=== PATIENT | female | born 1985 | race Caucasian/White ===

== ENCOUNTER 2022-12-05 11:15 | Emergency (ER) | payer SELFPAY ==
[2022-12-05] MEDS ORDERED: Morphine 15 MG Tab PO ONE (11:26)
[2022-12-05] MEDS ORDERED: Ibuprofen 600 MG Tab PO ONE (11:26)
[2022-12-05] MEDS ORDERED: Acetaminophen 500 MG Tab PO ONE (11:26)
== END 2022-12-05 12:49 | disposition home or self-care (01) ==
LOC: MW.ED 11:15
DX: S82.831A Other fracture of upper and lower end of right fibula, initial encounter for closed fracture (principal); X50.1XXA Overexertion from prolonged static or awkward postures, initial encounter
CPT/HCPCS: 73610; 99283; A9270